=== PATIENT | male | born 2000 | race Caucasian/White ===

== ENCOUNTER 2022-01-09 13:12 | Inpatient (IN) | payer BC ==
--- OUTSIDE RECORDS SUMMARY | 2022-01-09 13:15 | XMS REPORT | Continuity of Care Document ---
:2000 Author Organization [facility] t Address [address] [place] [address] Care Team Providers Name Role Phone Katty Clay MD Primary Care Physician Unavailable MIGUEL GONZALEZ Attending Clinician Unavailable Miguel Martin Attending Clinician [phone] Payers Payer Name Policy Type Policy Number Effective Date Expiration Date S ource Problems Condition Condition Condition Status Onset Resolution Last Treating Co mments Source Name Details Category Date Date Treatment Clinician Date No known No known Disease Unive rs active active ity of problems problems [facility] Allergies, Adverse Reactions, Alerts Allergy Allergy Status Severity Reaction(s) Onset Inactive Treating Comm ents Source Name Type Date Date Clinician NO KNOWN Drug Active Univers ALLERGIE Class ity of S [facility] Social History Social Habit Start Date Stop Date Quantity Comments Source Exposure to 2021-07-17 2021-08-16 Not sure University SARS-CoV-2 00:00:00 12:08:[address] [facility] [place] Tobacco use and 2017-09-22 2017-09-22 Smokeless tobacco Un iversity of exposure 00:00:00 00:00:00 non-user [facility] Sex Assigned At [birth year] Universit y of 00:00:00 00:00:00 [facility] Smoking Status Start Date Stop Date Source Never smoked tobacco [facility] Medications Ordered Filled Start Stop Current Ordering Indication Dosage Frequency Signature Comments Components Source Medication Medication Date Date Medication? Clinician (SIG) Name Name lisinopriL Yes [id number] 40mg Take 1 U nivers 40 mg 7-11 tablet by ity of tablet 00:00: mouth in [place] 00 the morning. Branch lisinopriL 2021- No [id number] 40mg Take 1 Univers 40 mg 3-23 07-11 tablet by ity of tablet 00:00: 00:00 mouth [place] 00 :00 daily. [facility] lisinopriL 2021- No [id number] 20mg Take 1 Univers 20 mg 3-14 -23 tablet by ity of tablet 00:00: 00:00 mouth [place] 00 :00 daily. [facility] lisinopriL 2021- No Univer s 20 mg 07-03-14 ity of tablet 00:00: 00:00 [place] 00 :00 [facility] fluticasone 2020-0 Yes [id number] 1{spray Use 1 Univers propionate 4-17 } [place] in ity o f 50 00:00: each [place] mcg/actuati 00 nostril 2 Med ical on nasal (two) Branch spray times daily. fluticasone 2020-0 Yes [id number] 1{spray Use 1 Univers propionate 4-17 } [place] ity o f 50 00:00: each [place] mcg/actuati 00 nostril 2 Med ical on nasal (two) Branch spray times daily. Immunizations Ordered Immunization Filled Immunization Date Status Commen ts Source Name Name SARS-COV-2 COVID-19 2021-01-08 Completed Unive rsity of PFIZER VACCINE 00:00:00 [facility] SARS-COV-2 COVID-19 2021-01-08 Completed Unive rsity of PFIZER VACCINE 00:00:00 [facility] Meningococcal B, OMV 2018-12-13 Completed Univ ersity of 00:00:00 [facility] Meningococcal B, OMV 2018-12-13 Completed Univ ersity of 00:00:00 [facility] Meningococcal 2017-10-19 Completed University of [facility] 00:00:00 [facility] (groups A, C, Y and Branc h W-135) conjugate vaccine (MCV4P) Meningococcal B, OMV 2017-10-19 Completed Univ ersity of 00:00:00 [facility] Meningococcal 2017-10-19 Completed University of Polysaccharide 00:00:00 [facility] (groups A, C, Y and Branc h W-135) conjugate vaccine (MCV4P) Meningococcal B, OMV 2017-10-19 Completed Univ ersity of 00:00:00 [facility] TDAP 2012-11-22 Completed University of 00:00:00 [facility] TDAP 2012-11-22 Completed University of 00:00:00 [facility] Varicella 2007-10-18 Completed University of (varivax)(chicken 00:00:00 [place] M edical pox) Branch Varicella 2007-10-18 Completed University of (varivax)(chicken 00:00:00 [place] M edical pox) Branch HEPATITIS A 2005-10-17 Completed University of 00:00:00 [facility] MMR 2005-10-17 Completed University of 00:00:00 [facility] Polio (IPV/OPV) 2005-10-17 Completed Universit y of 00:00:00 [facility] HEPATITIS A 2005-10-17 Completed University of 00:00:00 [facility] MMR 2005-10-17 Completed University of 00:00:00 [facility] Polio (IPV/OPV) 2005-10-17 Completed Universit y of 00:00:00 [facility] HEPATITIS A 2005-02-17 Completed University of 00:00:00 [facility] HEPATITIS A 2005-02-17 Completed University of 00:00:00 [facility] DTAP 2003-05-08 Completed University of 00:00:00 [facility] HIB 4 Dose Schedule 2003-05-08 Completed Unive rsity of 00:00:00 [facility] DTAP 2003-05-08 Completed University of 00:00:00 [facility] HIB 4 Dose Schedule 2003-05-08 Completed Unive rsity of 00:00:00 [facility] MMR 2003-02-11 Completed University of 00:00:00 [facility] Pneumococcal 13 2003-02-11 Completed Universit y of Conjugate, PCV13 00:00:00 [facility] dical (Prevnar 13) Branch MMR 2003-02-11 Completed University of 00:00:00 [facility] Pneumococcal 13 2003-02-11 Completed Universit y of Conjugate, PCV13 00:00:00 [place] Me dical (Prevnar 13) Branch Pneumococcal 13 2002-11-05 Completed Universit y of Conjugate, PCV13 00:00:00 [place] Me dical (Prevnar 13) Branch Polio (IPV/OPV) 2002-11-05 Completed Universit y of 00:00:00 [facility] Varicella 2002-11-05 Completed University of (varivax)(chicken 00:00:00 [place] M edical pox) Branch Pneumococcal 13 2002-11-05 Completed Universit y of Conjugate, PCV13 00:00:00 [facility] dical (Prevnar 13) Branch Polio (IPV/OPV) 2002-11-05 Completed Universit y of 00:00:00 [facility] Varicella 2002-11-05 Completed University of (varivax)(chicken 00:00:00 [place] M edical pox) Branch Hep B, Adol or Pedi 2002-07-24 Completed Unive rsity of Dosage 00:00:00 [facility] Pneumococcal 13 2002-07-24 Completed Universit y of Conjugate, PCV13 00:00:00 [facility] dical (Prevnar 13) Branch Hep B, Adol or Pedi 2002-07-24 Completed Unive rsity of Dosage 00:00:00 [facility] Pneumococcal 13 2002-07-24 Completed Universit y of Conjugate, PCV13 00:00:00 [facility] dical (Prevnar 13) Branch DTAP 2002-04-22 Completed University of 00:00:00 [facility] HIB 4 Dose Schedule 2002-04-22 Completed Unive rsity of 00:00:00 [facility] DTAP 2002-04-22 Completed University of 00:00:00 [facility] HIB 4 Dose Schedule 2002-04-22 Completed Unive rsity of 00:00:00 [facility] DTAP 2002-02-25 Completed University of 00:00:00 [facility] HIB 4 Dose Schedule 2002-02-25 Completed Unive rsity of 00:00:00 [facility] Polio (IPV/OPV) 2002-02-25 Completed Universit y of 00:00:00 [facility] DTAP 2002-02-25 Completed University of 00:00:00 [facility] HIB 4 Dose Schedule 2002-02-25 Completed Unive rsity of 00:00:00 [facility] Polio (IPV/OPV) 2002-02-25 Completed Universit y of 00:00:00 [facility] Polio (IPV/OPV) 2001 Completed Universit y of 00:00:00 [facility] Polio (IPV/OPV) 2001 Completed Universit y of 00:00:00 [facility] DTAP 2001 Completed University of 00:00:00 [facility] HIB 4 Dose Schedule 2001 Completed Unive rsity of 00:00:00 [facility] DTAP 2001 Completed University of 00:00:00 [facility] HIB 4 Dose Schedule 2001 Completed Unive rsity of 00:00:00 [facility] Hep B, Adol or Pedi 2001 Completed Unive rsity of Dosage 00:00:00 [facility] Hep B, Adol or Pedi 2001 Completed Unive rsity of Dosage 00:00:00 [facility] Hep B, Adol or Pedi 2001 Completed Unive rsity of Dosage 00:00:00 [facility] Hep B, Adol or Pedi 2001 Completed Unive rsity of Dosage 00:00:00 [facility] Vital Signs Vital Name Observation Time Observation Value Comments Source Systolic blood 2021-08-16 17:25:00 148 mm[Hg] Univer sity of pressure [facility] Diastolic blood 2021-08-16 17:25:00 80 mm[Hg] Unive rsity of pressure [facility] Body temperature 2021-08-16 17:25:00 36.11 Alison [facility] 2021-08-16 17:25:00 21 /min [facility] Body height 2021-08-16 17:25:00 182.6 cm [facility] Body weight 2021-08-16 17:25:00 92.4 kg [facility] BMI 2021-08-16 17:25:00 27.71 kg/m2 [facility] Body mass index 2021-08-16 17:25:00 88.34 % Unive rsity of (BMI) [Percentile] [facility] Per age and sex Branch Procedures Procedure Date / Time Performed Performing Clinician Sour e AMBULATORY BP 2021-10-01 00:00:00 Do Lau o f [facility] POCT URINALYSIS AUTO 2021-08-16 00:00:00 Do Lau [facility] Encounters Start End Encounter Admission Attending Care Care Encounter Source Date/Time Date/Time Type Type Clinicians Facility Department ID 2022-02-09 2022-02-09 [id number] 09:00:00 09:00:00 , [facility] [id number] [facility] 2021-12-07 2021-12-07 Refill [facility] [id number] Univers 00:00:00 00:00:00 , [facility] [id number] [id number] [id number] [address] OFFICE BUILDING 2021-08-16 2021-08-16 Office [facility] [id number] [facility] 12:30:00 13:08:07 [facility] [employer] [employer] [id number] [id number] [id number] [address] OFFICE BUILDING Results Test Description Test Time Test Comments Results Result Comments Source POCT URINALYSIS, INSTRUMENT 2021-08-16 17:49:00 Test Item Value Reference Range Interpretation Comme nts POCT U SP GRAV (test code = 3255) 1.025 mg/dl 1.005-1.025 POCT PH U (test code = 3254) 7.0 mg/dl 5-8 POCT U LEUK EST (test code = 3263) - Negative - Negative POCT U NIT (test code = 3262) - Negative - Negative POCT U PROT (test code = 3259) - Negative - Negative POCT U GLU (test code = 3256) - Negative - Negative POCT U KETONE (test code = 3258) - Negative - Negative POCT U UROBILI (test code = 3260) 0.2 mg/dl 0.2-1 POCT U BILI (test code = 3261) - Negative - Negative POCT U BLD (test code = 3257) - Negative - Negative POCT U COLOR (test code = 3266) POCT U APPEAR (test code = 3267) [facility]
[2022-01-09] MEDS ORDERED: NA CHLORIDE 0.9% 1,000 ML ONE ×2 (13:40→16:36)
[2022-01-09] MEDS ORDERED: FAMOTIDINE 20 MG/2 ML VIAL IV ONE (13:40)
[2022-01-09] MEDS ORDERED: ONDANSETRON 4 MG/2 ML VIAL ONE ×3 (13:40→17:47)
[2022-01-09 13:51] LABS: Absolute Lymphocytes (CBC) 1.1 K/uL (0.7-4.9); Hematocrit 44.8 % (39.6-49.0); Lymphocytes % 9.8 % (15.3-44.8); MCV 87.9 fL (80-100); MPV 7.9 fL (7.6-11.3); RBC Red Blood Cell Count 5.09 M/uL (4.33-5.43)
[2022-01-09 14:10] LABS: Albumin 4.6 g/dL (3.4-5.0); Bilirubin Total 1.1 mg/dL (0.2-1.0); Potassium 4.1 mmol/L (3.5-5.1); Protein, Total 8.1 g/dL (6.4-8.2)
[2022-01-09 14:22] LABS: SARS-CoV-2 Antigen Rapid Res Negative (Negative)
[2022-01-09] MEDS ORDERED: PROMETHAZINE INJ 25 MG/ML AMP ONE (14:55)
[2022-01-09] MEDS ORDERED: MEPERIDINE HCL 25 MG/ML SYR ONE (14:57)
--- NOTE | 2022-01-09 16:09 | RAD REPORT ---
EXAM DESCRIPTION: CT - Abdomen Pelvis W Contrast - 01/09/2022 4:00 pm CLINICAL HISTORY: Abdominal pain. COMPARISON: None. TECHNIQUE: Computed axial tomography of the abdomen and pelvis was obtained. 100 cc Isovue-300 is ad ministered intravenously. Oral contrast was given. All CT scans are performed using dose optimization technique as appropriate and may include automated exposure control or mA/KV adjustment according to patient size. FINDINGS: The liver, spleen, pancreas, adrenals and kidneys appear unremarkable. There is no evidence of diverticulitis The appendix extends anteromedially from the cecum. It contains a small stone. The appendix is mildly dilated with mild stranding the adjacent fat. No free air. No abscess IMPRESSION: Appendicitis
--- NOTE | 2022-01-09 16:28 | EDPHYS ---
Physician Documentation [facility] Name: Chilo Jaquez Age: 21 yrs Sex: Male : 2000 Arrival Date: 01/09/2022 Time: 13:15 Bed 13 Private MD: ARLENE Physician Haim Hamilton HPI: 01/09 13:43 This 21 yrs old Male presents to ER via Ambulatory with complaints of Abdominal Pain - snw r/o appendicitis. 13:43 The patient presents with abdominal pain right lower quadrant. Onset: The snw symptoms/episode began/occurred gradually, 1 day(s) ago, and became worse this morning, and became persistent. The symptoms do not radiate. Associated signs and symptoms: none. The symptoms are described as constant. Severity of pain: At its worst the pain was moderate this morning. The patient has not experienced similar symptoms in the past. It is unknown whether or not the patient has recently seen a physician. takes Lisinopril for HTN - norm 120s/70s with meds. Historical: - Allergies: 13:25 No Known Allergies; iw - Home Meds: 13:25 Lisinopril Oral [Active]; iw - PMHx: 13:25 Hypertensive disorder; iw - PSHx: 13:25 ear tubes; iw - Immunization history:: Client reports receiving the 2nd dose of the Covid vaccine. - Social history:: Smoking status: Patient denies any tobacco usage or history of. ROS: 13:40 Constitutional: Negative for fever, chills, and weight loss, Eyes: Negative for injury, snw pain, redness, and discharge, ENT: Negative for injury, pain, and discharge, Neck: Negative for injury, pain, and swelling, Cardiovascular: Negative for chest pain, palpitations, and edema, Respiratory: Negative for shortness of breath, cough, wheezing, and pleuritic chest pain, Abdomen/GI: Positive for abdominal pain, denies nausea, vomiting, diarrhea, and constipation, Pain began yesterday but increased in intensity today. tenderness to right lower quad this am. Back: Negative for injury and pain, : Negative for injury, bleeding, discharge, and swelling, MS/Extremity: Negative for injury and deformity, Skin: Negative for injury, rash, and discoloration, Neuro: Negative for headache, weakness, numbness, tingling, and seizure, Psych: Negative for depression, anxiety, suicide ideation, homicidal ideation, and hallucinations. Exam: 13:40 Head/Face: Normocephalic, atraumatic. Eyes: Pupils equal round and reactive to light, snw extra-ocular motions intact. Lids and lashes normal. Conjunctiva and sclera are non-icteric and not injected. Cornea within normal limits. Periorbital areas with no swelling, redness, or edema. ENT: Nares patent. No nasal discharge, no septal abnormalities noted. Tympanic membranes are normal and external auditory canals are clear. Oropharynx with no redness, swelling, or masses, exudates, or evidence of obstruction, uvula midline. Mucous membranes moist. Neck: Trachea midline, no thyromegaly or masses palpated, and no cervical lymphadenopathy. Supple, full range of motion without nuchal rigidity, or vertebral point tenderness. No Meningismus. Chest/axilla: Normal chest wall appearance and motion. Nontender with no deformity. No lesions are appreciated. Cardiovascular: Regular rate and rhythm with a normal S1 and S2. No gallops, murmurs, or rubs. Normal PMI, no JVD. No pulse deficits. Respiratory: Lungs have equal breath sounds bilaterally, clear to auscultation and percussion. No rales, rhonchi or wheezes noted. No increased work of breathing, no retractions or nasal flaring. Back: No spinal tenderness. No costovertebral tenderness. Full range of motion. Skin: Warm, dry with normal turgor. Normal color with no rashes, no lesions, and no evidence of cellulitis. MS/ Extremity: Pulses equal, no cyanosis. Neurovascular intact. Full, normal range of motion. Neuro: Awake and alert, GCS 15, oriented to person, place, time, and situation. Cranial nerves II-XII grossly intact. Motor strength 5/5 in all extremities. Sensory grossly intact. Cerebellar exam normal. Normal gait. Psych: Awake, alert, with orientation to person, place and time. Behavior, mood, and affect are within normal limits. 13:40 Constitutional: The patient appears in no acute distress, alert, awake, uncomfortable. 13:40 Abdomen/GI: Inspection: abdomen appears normal, Bowel sounds: normal, Palpation: moderate abdominal tenderness, in all quadrants, in the right lower quadrant, involuntary guarding, is elicited in the right lower quadrant, no appreciated organomegaly, Indicators: McBurney's point is tender, Rovsing's sign is negative, Obturator sign is negative. Vital Signs: 13:24 BP 148 / 52; Pulse 89; Resp 16; Pulse Ox 100% ; Weight 90.72 kg; Height 6 ft. 0 in. iw (182.88 cm); Pain 7/10; 13:34 BP 145 / 63; Pulse 78; Resp 19; Pulse Ox 100% on R/A; tp1 14:34 BP 142 / 71; Pulse 95; Resp 19; Temp 97.9; Pulse Ox 100% on R/A; tp1 15:44 BP 119 / 63; Pulse 75; Resp 19; Pulse Ox 100% on R/A; tp1 16:44 BP 124 / 52; Pulse 81; Resp 19; Pulse Ox 100% on R/A; tp1 13:24 Body Mass Index 27.13 (90.72 kg, 182.88 cm) iw MDM: 13:28 Patient medically screened. [facility] 13:44 Data reviewed: vital signs, nurses notes. Data interpreted: Pulse oximetry: on room air snw is 100 %. Interpretation: normal. Counseling: I had a detailed discussion with the patient and/or guardian regarding: the historical points, exam findings, and any diagnostic results supporting the discharge/admit diagnosis, the presence of at least one elevated blood pressure reading (>120/80) during this emergency department visit, lab results, radiology results, the need for outpatient follow up. 15:54 ED course: to CT. ED course: pain decreased post medication. snw 16:25 Physician consultation: Sen Clement MD was called at 16:10, was contacted at 16:10, snw regarding admission, to the medical/surgical unit. positive appendicitis. 16:26 ED course: NPO since last pm except for contrast media. . snw 01/09 13:19 Order name: CBC with Diff; Complete Time: 14:02 snw 01/09 13:19 Order name: CMP; Complete Time: 14:15 snw 01/09 13:19 Order name: CT Abd/Pelvis - PO and IV Contrast; Complete Time: 16:10 snw 01/09 13:19 Order name: Lipase; Complete Time: 14:15 snw 01/09 13:19 Order name: SARS RAPID; Complete Time: 14:24 snw 01/09 13:19 Order name: IV Saline Lock; Complete Time: 13:58 snw 01/09 13:19 Order name: Labs collected and sent; Complete Time: 13:58 snw 01/09 13:19 Order name: Urine Dipstick-Ancillary (obtain specimen); Complete Time: 13:58 snw Administered Medications: 13:43 Drug: NS 0.9% 1000 ml Route: IV; Rate: 1 bolus; Site: right antecubital; tp1 16:04 Follow up: IV Status: Completed infusion; IV Intake: 1000ml tp1 13:45 Drug: Zofran (Ondansetron) 4 mg Route: IVP; Site: right antecubital; tp1 15:00 Follow up: Response: Pain is unchanged, physician notified tp1 13:48 Drug: Pepcid (famotidine) 20 mg Route: IVP; Site: right antecubital; tp1 15:00 Follow up: Response: Pain is unchanged, physician notified tp1 14:56 Drug: Phenergan (promethazine) 6.25 mg Route: IVP; Site: right antecubital; tp1 15:43 Follow up: Response: Pain is decreased tp1 14:58 Drug: Demerol (meperidine) 12.5 mg Route: IVP; Site: right antecubital; tp1 15:43 Follow up: Response: Pain is decreased tp1 16:12 CANCELLED (change abxx): Mefoxin (cefOXitin) 1 grams IVPB once over 30 mins; (mix in 50 snw mL NS) 16:33 Drug: NS 0.9% 1000 ml Route: IV; Rate: 125 ml/hr; Site: right antecubital; tp1 17:05 Follow up: IV Status: Infusion continued upon admission tp1 16:35 Drug: Zosyn (piperacillin-tazobactam) 3.375 grams Route: IVPB; Infused Over: 60 mins; tp1 Site: right antecubital; 17:05 Follow up: IV Status: Infusion continued upon admission tp1 Disposition Summary: 01/09/22 16:28 Hospitalization Ordered Hospitalization Status: Observation snw Provider: Sen Clement Location: Telemetry/MedSurg (observation) snw Condition: Stable snw Problem: new snw Symptoms: are unchanged snw Bed/Room Type: Standard snw Room Assignment: snw Diagnosis - Unspecified acute appendicitis snw Forms: - Medication Reconciliation Form snw - SBAR form snw Signatures: Dispatcher [employer] Haim Lott MD MD cha Waters, Shelly, SHUTTLE FIXER-C SHUTTLE FIXER-Csnw Chelsea Stuart RN RN iw Parker, Tiffany, RN RN tp1 Corrections: (The following items were deleted from the chart) 16:12 16:11 Mefoxin (cefOXitin) 1 grams IVPB once over 30 mins; (mix in 50 mL NS) ordered. snwsnw
--- NOTE | 2022-01-09 16:28 | ER ---
Nurse's Notes [facility] Name: Chilo Jaquez Age: 21 yrs Sex: Male : 2000 Arrival Date: 01/09/2022 Time: 13:15 Bed 13 [facility] MD: Diagnosis: Unspecified acute appendicitis Presentation: 01/09 13:24 Chief complaint: Patient states: RLQ pain since this morning , no n/v/d. Coronavirus iw screen: At this time, the client does not indicate any symptoms associated with coronavirus-19. Ebola Screen: Patient negative for fever greater than or equal to 101.5 degrees Fahrenheit, and additional compatible Ebola Virus Disease symptoms Patient denies exposure to infectious person. Patient denies travel to an Ebola-affected area in the 21 days before illness onset. No symptoms or risks identified at this time. Initial Sepsis Screen: Does the patient meet any 2 criteria? No. Patient's initial sepsis screen is negative. Does the patient have a suspected source of infection? No. Patient's initial sepsis screen is negative. Risk Assessment: Do you want to hurt yourself or someone else? Patient reports no desire to harm self or others. Onset of symptoms was January 09, 2022. 13:24 Method Of Arrival: Ambulatory iw 13:24 Acuity: KIRSTY 3 iw Historical: - Allergies: 13:25 No Known Allergies; iw - Home Meds: 13:25 Lisinopril Oral [Active]; iw - PMHx: 13:25 Hypertensive disorder; iw - PSHx: 13:25 ear tubes; iw - Immunization history:: Client reports receiving the 2nd dose of the Covid vaccine. - Social history:: Smoking status: Patient denies any tobacco usage or history of. Screenin:27 Abuse screen: Denies threats or abuse. Nutritional screening: No deficits noted. tp1 Tuberculosis screening: No symptoms or risk factors identified. Fall Risk No fall in past 12 months (0 pts). No secondary diagnosis (0 pts). IV access (20 points). Ambulatory Aid- None/Bed Rest/Nurse Assist (0 pts). Gait- Normal/Bed Rest/Wheelchair (0 pts) Mental Status- Oriented to own ability (0 pts). Assessment: 13:59 General: Appears in no apparent distress. comfortable, Behavior is calm, cooperative. tp1 Pain: Complains of pain in abdomen Pain does not radiate. Pain currently is 6 out of 10 on a pain scale. Quality of pain is described as aching, Pain began this morning. Neuro: Level of Consciousness is awake, alert, obeys commands, Oriented to person, place, time, situation. Cardiovascular: Patient's skin is warm and dry. Respiratory: Airway is patent Respiratory effort is even, unlabored. GI: Abdomen is round non-distended, Bowel sounds present X 4 quads. Abd is soft Abdomen is tender to palpation in right lower quadrant Patient currently denies diarrhea, nausea, vomiting. 13:59 : No signs and/or symptoms were reported regarding the genitourinary system. EENT: No tp1 signs and/or symptoms were reported regarding the EENT system. Derm: Skin is pink, warm \T\ dry. Musculoskeletal: Circulation, motion, and sensation intact. 14:33 Reassessment: Patient appears in no apparent distress at this time. No changes from tp1 previously documented assessment. Patient is alert, oriented x 3, equal unlabored respirations, skin warm/dry/pink. states pain is a little worse, rates pain 7/10. door closed, noise minimized, light dimmed. 15:28 Reassessment: Patient appears in no apparent distress at this time. Patient and/or tp1 family updated on plan of care and expected duration. Pain level reassessed. Patient is alert, oriented x 3, equal unlabored respirations, skin warm/dry/pink. rates pain 1/10. 16:37 Reassessment: Patient appears in no apparent distress at this time. No changes from tp1 previously documented assessment. Patient and/or family updated on plan of care and expected duration. Pain level reassessed. Patient is alert, oriented x 3, equal unlabored respirations, skin warm/dry/pink. 16:57 Reassessment: transported to OR via wheelchair by OR nurse, Sarah Miller. tp1 Vital Signs: 13:24 BP 148 / 52; Pulse 89; Resp 16; Pulse Ox 100% ; Weight 90.72 kg; Height 6 ft. 0 in. iw (182.88 cm); Pain 7/10; 13:34 BP 145 / 63; Pulse 78; Resp 19; Pulse Ox 100% on R/A; tp1 14:34 BP 142 / 71; Pulse 95; Resp 19; Temp 97.9; Pulse Ox 100% on R/A; tp1 15:44 BP 119 / 63; Pulse 75; Resp 19; Pulse Ox 100% on R/A; tp1 16:44 BP 124 / 52; Pulse 81; Resp 19; Pulse Ox 100% on R/A; tp1 13:24 Body Mass Index 27.13 (90.72 kg, 182.88 cm) iw ED Course: 13:15 Patient arrived in ED. as 13:17 Kenna Winkler FNP-C is PHCP. snw 13:17 Haim Hamilton MD is Attending Physician. snw 13:20 Arm band placed on. tp1 13:25 Triage completed. iw 13:40 Patient has correct armband on for positive identification. Bed in low position. Call tp1 light in reach. Side rails up X 1. Adult w/ patient. 13:42 Inserted saline lock: 20 gauge in right antecubital area, using aseptic technique. tp1 Blood collected. 13:42 COVID swab sent to lab. tp1 13:58 Jyothi Cuba, PAUL is Primary Nurse. tp1 16:02 CT Abd/Pelvis - PO and IV Contrast In Process Unspecified. EDMS 16:27 Sen Clement MD is Hospitalizing Provider. snw 17:03 No provider procedures requiring assistance completed. tp1 17:04 Patient admitted, IV remains in place. tp1 Administered Medications: 13:43 Drug: NS 0.9% 1000 ml Route: IV; Rate: 1 bolus; Site: right antecubital; tp1 16:04 Follow up: IV Status: Completed infusion; IV Intake: 1000ml tp1 13:45 Drug: Zofran (Ondansetron) 4 mg Route: IVP; Site: right antecubital; tp1 15:00 Follow up: Response: Pain is unchanged, physician notified tp1 13:48 Drug: Pepcid (famotidine) 20 mg Route: IVP; Site: right antecubital; tp1 15:00 Follow up: Response: Pain is unchanged, physician notified tp1 14:56 Drug: Phenergan (promethazine) 6.25 mg Route: IVP; Site: right antecubital; tp1 15:43 Follow up: Response: Pain is decreased tp1 14:58 Drug: Demerol (meperidine) 12.5 mg Route: IVP; Site: right antecubital; tp1 15:43 Follow up: Response: Pain is decreased tp1 16:12 CANCELLED (change abxx): Mefoxin (cefOXitin) 1 grams IVPB once over 30 mins; (mix in 50 snw mL NS) 16:33 Drug: NS 0.9% 1000 ml Route: IV; Rate: 125 ml/hr; Site: right antecubital; tp1 17:05 Follow up: IV Status: Infusion continued upon admission tp1 16:35 Drug: Zosyn (piperacillin-tazobactam) 3.375 grams Route: IVPB; Infused Over: 60 mins; tp1 Site: right antecubital; 17:05 Follow up: IV Status: Infusion continued upon admission tp1 Medication: 17:04 VIS not applicable for this client. tp1 Intake: 16:04 IV: 1000ml; Total: 1000ml. tp1 Outcome: 16:28 Decision to Hospitalize by Provider. snw 17:04 Admitted to OR accompanied by nurse, via wheelchair, Report called to Sarah MILLER tp1 17:04 Condition: good 17:04 Instructed on the need for admit. 17:07 Patient left the ED. tp1 Signatures: Dispatcher [employer] EDMS Kenna Winkler, [employer]-Lani Sheehan Irene, Jyothi Pritchett RN, RN RN tp1 Corrections: (The following items were deleted from the chart) 13:26 13:24 Pulse 89bpm; Resp 16bpm; Pulse Ox 100%; 90.72 kg; Height 6 ft. 0 in.; BMI: 27.1; iw Pain 7/10; iw 14:27 13:59 GI: Abdomen is round non-distended, Bowel sounds present X 4 quads. Abd is soft tp1 Abdomen is tender to palpation in right lower quadrant Patient currently denies diarrhea, nausea, vomiting, tp1
[2022-01-09] MEDS ORDERED: NA CHLORIDE 0.9% 100 ML ONE (16:34)
[2022-01-09] MEDS ORDERED: PIPERACIL/TAZO 3.375 GM VIAL IV ONE (16:35)
[2022-01-09] MEDS ORDERED: LIDOCAINE 1% MPF 2 ML AMPULE ONE (17:15)
[2022-01-09] MEDS ORDERED: propofoL 200 MG/20 ML VIAL IV ONE (17:15)
[2022-01-09] MEDS ORDERED: FENTANYL CITR 100 MCG/2 ML ONE ×2 (17:16→18:01)
[2022-01-09] MEDS ORDERED: LIDOCAINE 1% MPF 5 ML VIAL ONE (17:16)
[2022-01-09] MEDS ORDERED: ROCURONIUM 50 MG/5 ML VIAL IV ONE ×2 (17:16→18:03)
--- NOTE | 2022-01-09 17:37 | P.HP ---
Date of Service: 01/09/22 PC: This 21-year-old male presented to emergency room with severe right lower quadrant abdominal pain for diagnosis and treatment. HPC: Woke up at 6 AM this morning. Noticed he was having some periumbilical pain. Over the course of the morning the pain located itself into the right lower quadrant. He could no longer walk, was started to have some nausea associated with this. PSHx: Negative PMHx: Negative Social Hx: No known allergies Sys R: No cough, wheeze, shortness of breath. No chest pain or palpitations. No urinary complaints O/E: Awake alert uncomfortable HEENT: Within normal limits Chest: Chest movement equal bilaterally Abd: Tender with guarding in the right lower quadrant Holt: Intact Data: CT scan confirms clinical diagnosis of acute abdomen with probable appendicitis Impression: Acute abdomen with appendicitis Plan: I will take him to the operating room for laparoscopic possible open appendectomy. The risks of this procedure have been discussed. The possibility of bleeding, infection, injury to bowel and surrounding structures was outlined. The possible need for an open and/or further surgeries and procedures was discussed. He understands and wants to proceed.
[2022-01-09] MEDS ORDERED: dexAMETHasone 10 MG/ML VIAL ONE (17:46)
[2022-01-09] MEDS ORDERED: KETOROLAC 30 MG/ML INJ ONE (17:47)
[2022-01-09] MEDS ORDERED: GLYCOPYRROLATE 0.2 MG/ML SYR ONE (18:15)
[2022-01-09] MEDS ORDERED: NEOSTIGMINE 1 MG/ML -10 ML VIAL ONE (18:18)
--- NOTE | 2022-01-09 18:23 | P.OP ---
Preoperative diagnosis: Acute abdomen, acute appendicitis Postoperative diagnosis: Acute appendicitis Primary procedure: Laparoscopic appendectomy Secondary procedure: Tap block Anesthesia: General Estimated blood loss: Less than 10 cc Specimen: 1 appendix Operative Technique: The patient brought the operating room and placed supine on the table. After the induction of adequate general endotracheal anesthesia, there the abdomen was prepped with a DuraPrep solution, and he was draped in usual aseptic manner. A subumbilical incision was made. This was brought down through the skin and subcutaneous tissue. The Visiport was now used to access the peritoneal cavity and created pneumoperitoneum to approximately 12 mmHg. Under direct vision a 5 mm trocar was placed in the lower midline, and another on the right lateral side of the abdomen. We were now able to visualize the right lower quadrant. With the patient placed in marked Trendelenburg and rolled to the left we could see the cecum itself. The appendix was coursing to the midline with omentum wrapped around it. The omental adhesions were gently teased down. We could see acute suppurative appendicitis. The appendix was now carefully grasped. By maneuvering the appendix we were able identify the junction of the appendix with the cecum. An opening was made in the window of the mesentery to the appendix. The linear stapler was now introduced into the peritoneal cavity, placed across the distal portion of the cecum and fired. The appendix had been detached. We were able to identify the vascular pedicle to the appendix. This was first crushed with a [place] retractor, then the reloading stapler device was placed across the mesentery of the appendix and fired. The appendix had now been detached. It was placed into an Endo Catch and brought out through the umbilical trocar site. Attention was turned back towards the base of the cecum. Adequate hemostasis was insured. We had a good staple line in this area. At this point the irrigating fluid was aspirated from the peritoneal cavity. A tap block was done of the anterior abdominal wall bilaterally with 0.25% Marcaine approximately 8 c c both sides. At this point the patient was placed in the neutral position on the OR table. The umbilical trocar site was approximated with the Endo Close and an absorbable suture. The trochars were removed, the pneumoperitoneum collapsed, and the suture tied. At this point augie were applied to the skin At the end of the procedure he was in a stable condition was sent to the recovery room. Needle sponge instrument count were correct. No drains were placed. Transferred to: Recovery Room Condition: Good
[2022-01-09] MEDS ORDERED: ONDANSETRON 4 MG/2 ML VIAL IV PRN (18:25)
[2022-01-09] MEDS: D5 0.45 NS 1,000 ML IV SCH (18:25)
[2022-01-09 18:27] VITALS: O2SAT 100
[2022-01-09] MEDS ORDERED: SUGAMMADEX SODIUM 200 MG/2 ML VIAL IV ONE (18:27)
[2022-01-09] MEDS: MORPHINE 4 MG/ML SYR IV PRN (19:57)
[2022-01-09] MEDS: CEFOXITIN 1 GM in NA CHLORIDE 0.9% 50 ML IVPB SCH (20:01)
[2022-01-09] MEDS ORDERED: HYDROCODONE/APAP 7.5/325 MG TAB PO PRN (20:28)
[2022-01-10] MEDS: CEFOXITIN 1 GM in NA CHLORIDE 0.9% 50 ML IVPB SCH ×2 (01:15→06:07)
[2022-01-10] MEDS: MORPHINE 4 MG/ML SYR IV PRN (01:45)
[2022-01-10 03:46] VITALS: BMI 27.1
[2022-01-10 04:07] LABS: Absolute Lymphocytes (CBC) 0.4 K/uL (0.7-4.9); Hematocrit 39.1 % (39.6-49.0); Lymphocytes % 4.9 % (15.3-44.8); MCV 87.1 fL (80-100); MPV 8.4 fL (7.6-11.3); RBC Red Blood Cell Count 4.49 M/uL (4.33-5.43)
[2022-01-10] MEDS: D5 0.45 NS 1,000 ML IV SCH ×2 (04:16→10:18)
[2022-01-10 04:22] LABS: Albumin 3.8 g/dL (3.4-5.0); Bilirubin Direct 0.2 mg/dL (0-0.2); Bilirubin Total 1.6 mg/dL (0.2-1.0); Potassium 4.4 mmol/L (3.5-5.1); Protein, Total 7.1 g/dL (6.4-8.2)
[2022-01-10 05:28] LABS: Blood Morphology Comment NOT SEEN (NOT SEEN); Platelet Estimate ADEQ
[2022-01-10 07:47] VITALS: BP 133/53; TEMP 98
== END 2022-01-10 10:37 | disposition home or self-care (01) | DRG 343 ==
LOC: ER 13:12 → ERHOLD 16:39 → 4TH 19:12
PROVIDERS: ADMIT Surgery; ATTEND Surgery
PROC: 0DTJ4ZZ Resection of Appendix, Percutaneous Endoscopic Approach (ICD-10-PCS; principal; 2022-01-09 17:30)
DX: K35.80 Unspecified acute appendicitis (principal); I10 Essential (primary) hypertension
CPT/HCPCS: 36415; 74177; 80048; 80053; 80076; 83690; 85025; 87811; 88304; 94010; 96361; 96365; 96375; 99285; J0694; J1100; J2175; J2405; J2543; J2550; J2704; J2710; J3010; J7030; J7799; Q9967